=== PATIENT | female | born 1950 | race Hispanic/Latino ===

== ENCOUNTER 2017-08-17 04:35 | Emergency (ER) | payer OTHER ==
[2017-08-17 04:51] LABS: BASOPHILS % (AUTO) 0.8 % (0.0-5.0); EOSINOPHILS % (AUTO) 3.6 % (0.0-8.0); HEMATOCRIT 40.3 % (36-48); LYMPHOCYTES % (AUTO) 20.3 % (21.0-51.0); MEAN CORPUSCULAR HEMOGLOBIN 30.4 pg (27.0-33.0); MEAN CORPUSCULAR HGB CONC 34.4 g/dL (32.0-36.0); MEAN CORPUSCULAR VOLUME 88.4 fL (79-99); MONOCYTES % (AUTO) 7.6 % (3.0-13.0); NEUTROPHILS % (AUTO) 67.7 % (40.0-77.0); PLATELET COUNT (AUTO) 223 K/uL (130-400); RED BLOOD CELL COUNT(AUTO) 4.56 MIL/uL (4.00-5.50); RED CELL DISTRIBUTION WIDTH 14.6 % (11.0-15.5)
[2017-08-17] MEDS ORDERED: ASPIRIN 325 MG TABLET ONE (04:52)
[2017-08-17 05:02] LABS: CARBON DIOXIDE 28 mmol/L (21-32); CHLORIDE 100 mmol/L (101-111); CREATININE 0.9 mg/dL (0.5-1.5); GLOMERULAR FILTR. RATE CALC 66 mL/min (>60); GLUCOSE,RANDOM 122 mg/dL (70-105); POTASSIUM 3.7 mmol/L (3.5-5.1); SODIUM SERUM 135 mmol/L (136-145); UREA NITROGEN, BLOOD 10 mg/dL (7-18)
[2017-08-17 05:03] LABS: INR 1.1 (0.85-1.15); PARTIAL THROMBOPLASTIN TIME 29.4 SEC (26.3-35.5); PROTHROMBIN TIME 11.5 SEC (9.6-11.6)
[2017-08-17 05:16] LABS: ALANINE AMINOTRANSFERASE 35 U/L (12-78); ALBUMIN 3.2 g/dL (3.5-5.0); ASPARTATE AMINOTRANSFERASE 27 U/L (10-37); BILIRUBIN,TOTAL 0.6 mg/dL (0.2-1.0); CREATINE KINASE MB < 0.5 ng/mL (0.5-3.6); CREATINE KINASE, TOTAL 69 U/L (21-232); MYOGLOBIN 50 ng/mL (10-92); TOTAL PROTEIN, SERUM 7.3 g/dL (6.0-8.3)
[2017-08-17] MEDS ORDERED: IPRATROPIUM/ALBUTEROL SULFATE 3 ML SOLUTION IH ONE (05:23)
== END 2017-08-17 08:24 | disposition home or self-care (01) ==
LOC: EDH 04:35
DX: J20.9 Acute bronchitis, unspecified (principal); I10 Essential (primary) hypertension; E11.9 Type 2 diabetes mellitus without complications; E78.5 Hyperlipidemia, unspecified; Z79.899 Other long term (current) drug therapy; Z90.49 Acquired absence of other specified parts of digestive tract
CPT/HCPCS: 36415; 71045; 80053; 82550; 82553; 83874; 84484; 85025; 85610; 85730; 87804; 93005; 94640; 94761

== ENCOUNTER 2017-09-21 15:03 | Emergency (ER) | payer OTHER ==
[2017-09-21] MEDS ORDERED: CIPROFLOXACIN HCL 0.2%/HYDROCORT 1% 10 ML OTIC SUSP ONE (15:36)
[2017-09-21] MEDS ORDERED: KETOROLAC TROMETHAMINE 30MG/ML ONE (15:48)
== END 2017-09-21 15:54 | disposition home or self-care (01) ==
LOC: EDH 15:03
DX: H60.91 Unspecified otitis externa, right ear (principal); E11.9 Type 2 diabetes mellitus without complications; I10 Essential (primary) hypertension; E78.5 Hyperlipidemia, unspecified; Z90.49 Acquired absence of other specified parts of digestive tract; Z98.890 Other specified postprocedural states
CPT/HCPCS: 96372; 99283; J1885

== ENCOUNTER 2017-12-21 20:03 | Emergency (ER) | payer OTHER ==
[2017-12-21 20:32] LABS: BASOPHILS % (AUTO) 0.7 % (0.0-5.0); EOSINOPHILS % (AUTO) 2.9 % (0.0-8.0); HEMATOCRIT 39.7 % (36-48); LYMPHOCYTES % (AUTO) 27.3 % (21.0-51.0); MEAN CORPUSCULAR HEMOGLOBIN 30.5 pg (27.0-33.0); MEAN CORPUSCULAR HGB CONC 34.7 g/dL (32.0-36.0); MEAN CORPUSCULAR VOLUME 87.8 fL (79-99); MONOCYTES % (AUTO) 6.5 % (3.0-13.0); NEUTROPHILS % (AUTO) 62.6 % (40.0-77.0); NUCLEATED RED BLOOD CELLS 0.1 % (0.0-0.19); PLATELET COUNT (AUTO) 283 K/uL (130-400); RED BLOOD CELL COUNT(AUTO) 4.52 MIL/uL (4.00-5.50); RED CELL DISTRIBUTION WIDTH 14.5 % (11.0-15.5); WHITE BLOOD COUNT (AUTO) 15.1 K/uL (4.8-10.8)
[2017-12-21 21:04] LABS: B-TYPE NATRIURETIC PEPTIDE 55 pg/mL (0-100)
[2017-12-21 21:37] LABS: POTASSIUM 3.1 mmol/L (3.5-5.1)
[2017-12-21 21:52] LABS: ALBUMIN 3.4 g/dL (3.5-5.0); BILIRUBIN,TOTAL 0.2 mg/dL (0.2-1.0); CREATINE KINASE MB 0.8 ng/mL (0.5-3.6); TOTAL PROTEIN, SERUM 7.7 g/dL (6.0-8.3)
[2017-12-21] MEDS ORDERED: KETOROLAC TROMETHAMINE 15MG/ML ONE (22:01)
[2017-12-21 23:07] LABS: APPEARANCE,URINE Clear (CLEAR); BILIRUBIN,URINE Negative (NEGATIVE); COLOR,URINE Yellow (YELLOW); GLUCOSE, URINE (UA) Negative (NEGATIVE); KETONES,URINE Negative (NEGATIVE); LEUKOCYTE ESTERASE ,URINE Moderate (NEGATIVE); NITRATE,URINE Negative (NEGATIVE); OCCULT BLOOD,URINE Negative (NEGATIVE); PH,URINE 6.5 (5.0-8.0); PROTEIN,URINE Negative (NEGATIVE); UROBILINOGEN,URINE 0.2 mg/dL (0.2-1.0)
[2017-12-21 23:15] LABS: BACTERIA,URINE Few /HPF (None Seen); MUCUS,URINE Many LPF (None Seen); RBC,URINE 0-1 /HPF (0-1); SQUAMOUS EPITHELIAL CELL,UR Moderate /HPF (0-2)
== END 2017-12-22 02:59 | disposition short-term general hospital (02) ==
LOC: EDH 20:03
DX: M25.511 Pain in right shoulder (principal); R53.1 Weakness; R20.2 Paresthesia of skin; R20.0 Anesthesia of skin; M54.2 Cervicalgia; E11.9 Type 2 diabetes mellitus without complications; E78.5 Hyperlipidemia, unspecified; I10 Essential (primary) hypertension
CPT/HCPCS: 36415; 70450; 71046; 72125; 73030; 73110; 80053; 81001; 82550; 82553; 83880; 84484; 85025; 93005; 96374; 99285; J1885

== ENCOUNTER 2018-01-06 14:58 | Emergency (ER) | payer OTHER | END 2018-01-06 15:34 | disposition home or self-care (01) | LOC: EDH 14:58 | DX: H61.21 Impacted cerumen, right ear (principal); E11.9 Type 2 diabetes mellitus without complications; E78.5 Hyperlipidemia, unspecified; I10 Essential (primary) hypertension | CPT/HCPCS: 99281 ==

== ENCOUNTER → 2018-04-19 | Outpatient (CLI) | payer OTHER ==
[~2018-04-19] VITALS: Ht 152.4 cm; Wt 99.8 kg
[~2018-04-19] MED LIST: REGADENOSON 0.4 MG/5 ML PF SYG IVP SCH
== END | disposition home or self-care (01) ==
LOC: SHCH 09:04
PROVIDERS: ATTEND Internal Medicine Cardiovascular Disease
DX: I10 Essential (primary) hypertension (principal); E11.9 Type 2 diabetes mellitus without complications; E78.5 Hyperlipidemia, unspecified; Z90.49 Acquired absence of other specified parts of digestive tract
CPT/HCPCS: 78452; 93017; 96374; A9500 ×2; J2785

== ENCOUNTER → 2018-04-26 | Outpatient (CLI) | payer OTHER ==
[~2018-04-26] MED LIST changes: +ASPI-555 PO; +CARV6.25 PO; +FENO54TA6 PO; +LOSA1TAB54 PO; +METF-444 PO; +PRAV40TA3 PO; -REGADENOSON 0.4 MG/5 ML PF SYG IVP SCH
== END | disposition home or self-care (01) ==
LOC: SHCH 14:57
PROVIDERS: ATTEND Internal Medicine Cardiovascular Disease
DX: I10 Essential (primary) hypertension (principal); E11.9 Type 2 diabetes mellitus without complications; E78.5 Hyperlipidemia, unspecified; Z79.899 Other long term (current) drug therapy
CPT/HCPCS: 93306

== ENCOUNTER 2018-05-16 05:36 | Day surgery (SDC) | payer OTHER ==
[2018-05-14 12:50] VITALS: BP 123/50
[2018-05-14 12:59] LABS: EOSINOPHILS % (AUTO) 2.9 % (0.0-8.0); LYMPHOCYTES % (AUTO) 30.8 % (21.0-51.0); MEAN CORPUSCULAR VOLUME 90.8 fL (79-99); MONOCYTES % (AUTO) 5.6 % (3.0-13.0); NEUTROPHILS % (AUTO) 59.7 % (40.0-77.0); PLATELET COUNT (AUTO) 226 K/uL (130-400); RED BLOOD CELL COUNT(AUTO) 4.74 MIL/uL (4.00-5.50); RED CELL DISTRIBUTION WIDTH 14.8 % (11.0-15.5); WHITE BLOOD COUNT (AUTO) 10.7 K/uL (4.8-10.8)
[2018-05-14 13:00] LABS: APPEARANCE,URINE Cloudy (CLEAR); BILIRUBIN,URINE Negative (NEGATIVE); COLOR,URINE Yellow (YELLOW); GLUCOSE, URINE (UA) Negative (NEGATIVE); KETONES,URINE Negative (NEGATIVE); LEUKOCYTE ESTERASE ,URINE Small (NEGATIVE); NITRATE,URINE Negative (NEGATIVE); OCCULT BLOOD,URINE Negative (NEGATIVE); PROTEIN,URINE Trace (NEGATIVE)
[2018-05-14 13:11] LABS: INR 1.09 (0.85-1.15); PARTIAL THROMBOPLASTIN TIME 33.5 SEC (26.3-35.5); PROTHROMBIN TIME 11.4 SEC (9.6-11.6)
[2018-05-14 13:13] LABS: CREATININE 1.2 mg/dL (0.5-1.5); POTASSIUM 3.8 mmol/L (3.5-5.1)
[2018-05-14 13:19] LABS: RBC,URINE 0-1 /HPF (0-1)
[2018-05-14 13:20] LABS: BACTERIA,URINE Rare /HPF (None Seen)
[2018-05-14 13:22] LABS: TRANSITIONAL EPI CELLS,URINE Rare /HPF (None Seen)
[2018-05-14 13:23] LABS: SQUAMOUS EPITHELIAL CELL,UR Few /HPF (0-2)
[~2018-05-16] VITALS: Ht 154.9 cm; Wt 100.4 kg
[2018-05-16] VITALS (14 sets, daily range): BP systolic 111–143; BP diastolic 48–66
[~2018-05-16 05:36] MED LIST changes: +SODIUM CHLORIDE 0.9% 500ML 500 ML IV SCH
[2018-05-16] MEDS ORDERED: SODIUM CHLORIDE 0.9% 1000ML 1,000 ML IV ONE (07:32)
[2018-05-16] MEDS ORDERED: LIDOCAINE HCL-MPF 2% 5ML VIAL ONE ×2 (08:19→09:13)
[2018-05-16] MEDS ORDERED: IOHEXOL 350 MG/ML 100ML INFUS..BTL IV ONE (08:20)
[2018-05-16] MEDS ORDERED: IOHEXOL-350 50ML VIAL IV ONE (08:20)
[2018-05-16] MEDS ORDERED: HEPARIN SODIUM 1000UNIT/ML 10ML VIAL ONE (08:20)
[2018-05-16] MEDS ORDERED: GLUCAGON 1MG KIT 1 MG ML IM PRN (10:00)
[2018-05-16] MEDS ORDERED: DEXTROSE 50%-WATER 50 ML DISP.SYRIN IV PRN (10:00)
[2018-05-16] MEDS ORDERED: SODIUM CHLORIDE 0.9% 10 ML VIAL IVP SCH (10:00)
[2018-05-16] MEDS ORDERED: INSULIN HUMULIN R 100 UNIT/ML 3ML SQ SCH (11:30)
== END 2018-05-16 18:10 | disposition home or self-care (01) ==
LOC: DAH 05:36
PROVIDERS: ATTEND Internal Medicine Cardiovascular Disease
DX: I34.0 Nonrheumatic mitral (valve) insufficiency (principal); I11.9 Hypertensive heart disease without heart failure; E78.5 Hyperlipidemia, unspecified; F32.9 Major depressive disorder, single episode, unspecified; E66.09 Other obesity due to excess calories; Z68.41 Body mass index [BMI] 40.0-44.9, adult; Z79.82 Long term (current) use of aspirin; Z79.899 Other long term (current) drug therapy; Z90.49 Acquired absence of other specified parts of digestive tract; Z82.49 Family history of ischemic heart disease and other diseases of the circulatory system; Z83.3 Family history of diabetes mellitus
CPT/HCPCS: 36415; 71045; 80048; 81001; 82948 ×2; 85025; 85610; 85730; 93005; 93460; A4606; C1894 ×3; J1644 ×2; J3490 ×2; J7030; Q9965; Q9967 ×2

== ENCOUNTER 2019-10-26 16:03 | Emergency (ER) | payer OTHER ==
[~2019-10-26 16:03] MED LIST changes: -SODIUM CHLORIDE 0.9% 500ML 500 ML IV SCH
[2019-10-26] MEDS ORDERED: TETRACAINE HCL 0.5% 4 ML OPHTH SOLN ONE (17:17)
[2019-10-26] MEDS ORDERED: FLUORESCEIN SODIUM 1 STRIP STRIP ONE (17:17)
[2019-10-26] MEDS ORDERED: DIPHENHYDRAMINE HCL 25 MG CAPSULE ONE (17:43)
== END 2019-10-26 17:59 | disposition home or self-care (01) ==
LOC: EDH 16:03
DX: B02.9 Zoster without complications (principal); E11.9 Type 2 diabetes mellitus without complications; I10 Essential (primary) hypertension; E78.5 Hyperlipidemia, unspecified; Z90.49 Acquired absence of other specified parts of digestive tract; Z98.890 Other specified postprocedural states
CPT/HCPCS: 99283; Q0163

== ENCOUNTER 2021-07-05 06:34 | Observation (INO) | payer OTHER ==
[~2021-07-05] VITALS: Ht 157.5 cm; Wt 100.4 kg
[~2021-07-05 06:34] MED LIST changes: -ASPI-555 PO; +ASPI-556 PO
[2021-07-05 06:54] LABS: EOSINOPHILS % (AUTO) 2.5 % (0.0-8.0); HEMATOCRIT 43.3 % (36-48); LYMPHOCYTES % (AUTO) 26.6 % (21.0-51.0); MEAN CORPUSCULAR HEMOGLOBIN 29.7 pg (27.0-33.0); MONOCYTES % (AUTO) 6.1 % (3.0-13.0); NEUTROPHILS % (AUTO) 62.8 % (40.0-77.0); PLATELET COUNT (AUTO) 221 K/uL (130-400); RED BLOOD CELL COUNT(AUTO) 4.81 MIL/uL (4.00-5.50); RED CELL DISTRIBUTION WIDTH 15.1 % (11.0-15.5); WHITE BLOOD COUNT (AUTO) 14.5 K/uL (4.8-10.8)
[2021-07-05 07:13] LABS: ALBUMIN 3.4 g/dL (3.5-5.0); BILIRUBIN,TOTAL 0.6 mg/dL (0.2-1.0); TOTAL PROTEIN, SERUM 7.6 g/dL (6.0-8.3)
[2021-07-05] MEDS ORDERED: NITROGLYCERIN 1GM OINT 1 INCH/1GM TD SCH (07:30)
[2021-07-05] MEDS ORDERED: MORPHINE 4 MG SYG IVP SCH (07:30)
[2021-07-05] MEDS ORDERED: ONDANSETRON 4MG INJ IVP SCH (07:30)
[2021-07-05] MEDS ORDERED: ASPIRIN 325MG TAB PO SCH (07:30)
[2021-07-05 09:20] LABS: APPEARANCE,URINE Clear (CLEAR); BILIRUBIN,URINE Negative (NEGATIVE); COLOR,URINE Yellow (YELLOW); GLUCOSE, URINE (UA) Negative (NEGATIVE); KETONES,URINE Negative (NEGATIVE); LEUKOCYTE ESTERASE ,URINE Negative (NEGATIVE); NITRATE,URINE Negative (NEGATIVE); OCCULT BLOOD,URINE Negative (NEGATIVE); PH,URINE 6.5 (5.0-8.0); PROTEIN,URINE Negative (NEGATIVE)
[2021-07-05] MEDS ORDERED: HYDRALAZINE 20MG/ML VIAL IV PRN (10:30)
[2021-07-05] MEDS ORDERED: ACETAMINOPHEN 325 MG TAB PO PRN (10:30)
[2021-07-05] MEDS ORDERED: LABETALOL 20MG SYG IV PRN (10:30)
[2021-07-05] MEDS ORDERED: IPRATROPIUM/ALBUTEROL SULFATE 3 ML SOLUTION IH PRN (10:30)
[2021-07-05] MEDS ORDERED: DOCUSATE SODIUM 100 MG CAP PO PRN (10:30)
[2021-07-05] MEDS: INSULIN HUMULIN R 100 UNIT/ML 3ML SQ SCH ×3 (11:11→19:56)
[2021-07-05 15:35] VITALS: BP 126/42
[2021-07-05] MEDS ORDERED: ROSU10TA28 PO (16:40)
[2021-07-05] MEDS ORDERED: DULO20CA18 PO (16:40)
[2021-07-05] MEDS ORDERED: TRAM50TA4 PO (16:40)
[2021-07-05] MEDS ORDERED: ALPR0.255 PO (16:40)
[2021-07-05] MEDS ORDERED: CARV6.25 PO (16:45)
[2021-07-05] MEDS ORDERED: ONDANSETRON 4MG INJ IVP PRN (19:30)
[2021-07-05 19:51] VITALS: BP 120/50
[2021-07-05] MEDS: TRAMADOL HCL 50 MG TABLET PO SCH (19:56)
[2021-07-05] MEDS: ALPRAZOLAM 0.25 MG TABLET PO SCH (19:56)
[2021-07-05] MEDS: CARVEDILOL 6.25 MG TABLET PO SCH (19:56)
[2021-07-05] MEDS ORDERED: SIMVASTATIN 20 MG TABLET PO SCH (21:00)
[2021-07-05 23:06] VITALS: BP 101/54
[2021-07-06 03:42] VITALS: BP 113/56
[2021-07-06 05:26] LABS: CREATININE 0.9 mg/dL (0.5-1.5); MAGNESIUM 1.8 mg/dL (1.80-2.40); PHOSPHORUS 3.9 mg/dL (2.5-4.9)
[2021-07-06] MEDS: INSULIN HUMULIN R 100 UNIT/ML 3ML SQ SCH ×4 (05:56→21:00)
[2021-07-06 08:00] VITALS: BP 111/40
[2021-07-06] MEDS: REGADENOSON 0.4 MG/5 ML PF SYG IVP SCH ×2 (08:00→12:12)
[2021-07-06] MEDS: ENOXAPARIN SODIUM 40 MG/0.4 ML SYRINGE SQ SCH ×2 (09:00→09:41)
[2021-07-06] MEDS: TRAMADOL HCL 50 MG TABLET PO SCH ×3 (09:00→20:50)
[2021-07-06] MEDS: **HM**(Duloxetine HCl 20 MG PO SCH (09:00)
[2021-07-06] MEDS: LOSARTAN/HYDROCHLOROTHIAZIDE 50-12.5MG TABLET PO SCH ×2 (09:00→09:21)
[2021-07-06] MEDS: ATORVASTATIN 20 MG TABLET PO SCH (09:21)
[2021-07-06] MEDS: PANTOPRAZOLE 40 MG TAB DR PO SCH (09:22)
[2021-07-06] MEDS: CARVEDILOL 6.25 MG TABLET PO SCH ×2 (09:24→20:47)
[2021-07-06 12:00] VITALS: BP 127/46
[2021-07-06 17:38] VITALS: BP 136/38
[2021-07-06 20:00] VITALS: BP 146/64
[2021-07-06] MEDS: ALPRAZOLAM 0.25 MG TABLET PO SCH (20:47)
[2021-07-07] VITALS: BP 108/42
[2021-07-07 04:00] VITALS: BP 101/48
[2021-07-07 05:14] LABS: BASOPHILS % (AUTO) 1.1 % (0.0-5.0); EOSINOPHILS % (AUTO) 3.3 % (0.0-8.0); LYMPHOCYTES % (AUTO) 29.3 % (21.0-51.0); MEAN CORPUSCULAR HEMOGLOBIN 29.4 pg (27.0-33.0); MEAN CORPUSCULAR HGB CONC 32.4 g/dL (32.0-36.0); MEAN CORPUSCULAR VOLUME 90.5 fL (79-99); MONOCYTES % (AUTO) 7.7 % (3.0-13.0); NEUTROPHILS % (AUTO) 57.9 % (40.0-77.0); PLATELET COUNT (AUTO) 209 K/uL (130-400); RED BLOOD CELL COUNT(AUTO) 4.53 MIL/uL (4.00-5.50)
[2021-07-07 05:39] LABS: ALBUMIN 2.9 g/dL (3.5-5.0); BILIRUBIN,TOTAL 0.4 mg/dL (0.2-1.0); CREATININE 0.9 mg/dL (0.5-1.5); POTASSIUM 3.9 mmol/L (3.5-5.1); TOTAL PROTEIN, SERUM 6.9 g/dL (6.0-8.3)
[2021-07-07] MEDS: INSULIN HUMULIN R 100 UNIT/ML 3ML SQ SCH ×2 (06:33→11:19)
[2021-07-07 08:49] VITALS: BP 118/52
[2021-07-07] MEDS: PANTOPRAZOLE 40 MG TAB DR PO SCH (09:00)
[2021-07-07] MEDS: ATORVASTATIN 20 MG TABLET PO SCH (09:00)
[2021-07-07] MEDS: LOSARTAN/HYDROCHLOROTHIAZIDE 50-12.5MG TABLET PO SCH (09:00)
[2021-07-07] MEDS: ENOXAPARIN SODIUM 40 MG/0.4 ML SYRINGE SQ SCH (09:00)
[2021-07-07] MEDS: TRAMADOL HCL 50 MG TABLET PO SCH (09:00)
[2021-07-07] MEDS: **HM**(Duloxetine HCl 20 MG PO SCH (09:00)
[2021-07-07] MEDS: CARVEDILOL 6.25 MG TABLET PO SCH (09:16)
[2021-07-07 13:35] VITALS: BP 130/60
== END 2021-07-07 15:50 | disposition still patient (30) ==
LOC: EDH 06:34 → INTOOBSV 10:05 → EDHIP 10:05 → 3AH 15:42
PROVIDERS: ADMIT Internal Medicine Pulmonary Disease; ATTEND Internal Medicine Pulmonary Disease
DX: R07.89 Other chest pain (principal); I10 Essential (primary) hypertension; E11.9 Type 2 diabetes mellitus without complications; G47.33 Obstructive sleep apnea (adult) (pediatric); D72.829 Elevated white blood cell count, unspecified; E66.01 Morbid (severe) obesity due to excess calories; E78.5 Hyperlipidemia, unspecified; F32.A Depression, unspecified; Z86.73 Personal history of transient ischemic attack (TIA), and cerebral infarction without residual deficits; Z77.22 Contact with and (suspected) exposure to environmental tobacco smoke (acute) (chronic); Z91.19 Patient's noncompliance with other medical treatment and regimen; Z98.61 Coronary angioplasty status; Z90.49 Acquired absence of other specified parts of digestive tract; Z98.891 History of uterine scar from previous surgery; Z79.82 Long term (current) use of aspirin; Z79.84 Long term (current) use of oral hypoglycemic drugs; Z68.41 Body mass index [BMI] 40.0-44.9, adult
CPT/HCPCS: 36415 ×3; 71045; 78452; 80048; 80053 ×2; 81003; 82550 ×3; 82948 ×10; 83735; 83874 ×3; 83880; 84100; 84484 ×4; 85025 ×2; 93005; 93017; 93306; 93356; 96372; 96374; 96375; 96376; 99285; A9500 ×2; G0378 ×50; J1650; J2270; J2405 ×2; J2785

== ENCOUNTER 2022-10-20 03:42 | Emergency (ER) | payer OTHER ==
[~2022-10-20] VITALS: Ht 154.9 cm; Wt 106.6 kg
[~2022-10-20 03:42] MED LIST changes: +ALPR0.255 PO; -ASPI-556 PO; -CARV6.25 PO; +DULO20CA18 PO; -FENO54TA6 PO; -PRAV40TA3 PO; +ROSU10TA28 PO; +TRAM50TA4 PO
[2022-10-20] MEDS ORDERED: LIDOCAINE HCL 2% VISCOUS 15 ML UDCUP ONE (03:59)
[2022-10-20] MEDS ORDERED: MAG/ALUM/SIMETH 30 ML UDCUP ONE (03:59)
[2022-10-20] MEDS ORDERED: DICYCLOMINE HCL 10 MG/5 ML ML PO ONE (03:59)
[2022-10-20 04:00] LABS: APPEARANCE,URINE CLEAR (CLEAR); BILIRUBIN,URINE NEGATIVE (NEGATIVE); GLUCOSE, URINE (UA) NEGATIVE (NEGATIVE); KETONES,URINE NEGATIVE (NEGATIVE); LEUKOCYTE ESTERASE ,URINE NEGATIVE Leu/uL (NEGATIVE); NITRATE,URINE NEGATIVE (NEGATIVE); OCCULT BLOOD,URINE NEGATIVE (NEGATIVE); PH,URINE 6.5 (5.0-8.0); PROTEIN,URINE NEGATIVE (NEGATIVE); UROBILINOGEN,URINE 0.2 mg/dL (0.2-1.0)
[2022-10-20] MEDS ORDERED: DICYCLOMINE HCL 10 MG/5 ML ML PO SCH (04:00)
[2022-10-20] MEDS ORDERED: 0.9% NACL 500ML IV.SOLN 500 ML IV ONE (04:00)
[2022-10-20] MEDS ORDERED: MAG/ALUM/SIMETH 30 ML UDCUP PO ONE (04:00)
[2022-10-20] MEDS ORDERED: LIDOCAINE HCL 2% VISCOUS 15 ML UDCUP PO ONE (04:00)
[2022-10-20 04:05] LABS: COLOR,URINE Light-Yellow (YELLOW)
[2022-10-20 04:19] LABS: BASOPHILS % (AUTO) 0.9 % (0.0-5.0); EOSINOPHILS % (AUTO) 3.2 % (0.0-8.0); LYMPHOCYTES % (AUTO) 27.6 % (21.0-51.0); MEAN CORPUSCULAR HGB CONC 32.6 g/dL (32.0-36.0); MONOCYTES % (AUTO) 8.3 % (3.0-13.0); NEUTROPHILS % (AUTO) 59.3 % (40.0-77.0); PLATELET COUNT (AUTO) 187 K/uL (130-400); RED BLOOD CELL COUNT(AUTO) 4.72 MIL/uL (4.00-5.50); RED CELL DISTRIBUTION WIDTH 14.4 % (11.0-15.5); WHITE BLOOD COUNT (AUTO) 12.7 K/uL (4.8-10.8)
[2022-10-20 04:27] LABS: CREATININE 0.8 mg/dL (0.5-1.5); POTASSIUM 4.1 mmol/L (3.5-5.1)
[2022-10-20 04:31] LABS: ALBUMIN 3.1 g/dL (3.5-5.0); TOTAL PROTEIN, SERUM 7.1 g/dL (6.0-8.3)
[2022-10-20 05:26] VITALS: BP 143/57
[2022-10-20] MEDS ORDERED: FAMO-136 PO (06:00)
[2022-10-20] MEDS ORDERED: HYDR30CR79 RC (06:07)
== END 2022-10-20 06:16 | disposition home or self-care (01) ==
LOC: EDH 03:42
DX: K64.4 Residual hemorrhoidal skin tags (principal); K21.00 Gastro-esophageal reflux disease with esophagitis, without bleeding; E11.9 Type 2 diabetes mellitus without complications; E66.09 Other obesity due to excess calories; E66.01 Morbid (severe) obesity due to excess calories; E78.00 Pure hypercholesterolemia, unspecified; I10 Essential (primary) hypertension; Z68.41 Body mass index [BMI] 40.0-44.9, adult; Z79.899 Other long term (current) drug therapy; Z98.890 Other specified postprocedural states; Z90.49 Acquired absence of other specified parts of digestive tract; Z86.73 Personal history of transient ischemic attack (TIA), and cerebral infarction without residual deficits
CPT/HCPCS: 99284; 96360; 71045; 84484; 80053; 83690; 85025; 81003; 36415; J7040

== ENCOUNTER 2023-05-30 15:20 | Emergency (ER) | payer OTHER ==
[~2023-05-30] VITALS: Ht 152.4 cm; Wt 108.9 kg
[~2023-05-30 15:20] MED LIST changes: +FAMO-136 PO; +HYDR30CR79 RC
[2023-05-30 15:23] VITALS: BP 150/82; PULSE 85; RESP 16
[2023-05-30] MEDS ORDERED: ACETAMINOPHEN 325 MG TAB PO ONE (16:30)
[2023-05-30 16:35] LABS: BASOPHILS # (AUTO) 0.12 K/uL (0.00-0.20); BASOPHILS % (AUTO) 0.7 % (0.0-5.0); EOSINOPHILS % (AUTO) 0.6 % (0.0-8.0); HEMATOCRIT 46.2 % (36-48); IMMATURE GRANULOCYTE ABSOLUTE 0.07 K/uL (0-1); LYMPHOCYTES # (AUTO) 4.1 K/uL (1.0-4.8); LYMPHOCYTES % (AUTO) 24.9 % (21.0-51.0); MEAN CORPUSCULAR HEMOGLOBIN 29.3 pg (27.0-33.0); MEAN CORPUSCULAR HGB CONC 32.9 g/dL (32.0-36.0); MONOCYTES # (AUTO) 1.4 K/uL (0.1-1.0); MONOCYTES % (AUTO) 8.4 % (3.0-13.0); NEUTROPHILS # (AUTO) 10.7 K/uL (1.8-7.7); PLATELET COUNT (AUTO) 209 K/uL (130-400); RED BLOOD CELL COUNT(AUTO) 5.19 MIL/uL (4.00-5.50); RED CELL DISTRIBUTION WIDTH 14.2 % (11.0-15.5); WHITE BLOOD COUNT (AUTO) 16.4 K/uL (4.8-10.8)
[2023-05-30 17:22] LABS: CREATININE 0.9 mg/dL (0.5-1.5)
[2023-05-30 17:22] LABS: SARS-CoV-2, RNA, NAAT NEGATIVE SARS CoV-2 (NEGATIVE)
[2023-05-30 17:28] LABS: INFLUENZA TYPE A Negative For Type A (NEGATIVE); INFLUENZA TYPE B Negative For Type B (NEGATIVE)
[2023-05-30] MEDS ORDERED: KETOROLAC 15MG/ML VIAL (15MG/ML) IV ONE (17:30)
[2023-05-30 17:44] LABS: APPEARANCE,URINE CLOUDY (CLEAR); BILIRUBIN,URINE NEGATIVE (NEGATIVE); COLOR,URINE YELLOW (YELLOW); GLUCOSE, URINE (UA) NEGATIVE (NEGATIVE); KETONES,URINE NEGATIVE (NEGATIVE); LEUKOCYTE ESTERASE ,URINE 250 Leu/uL (NEGATIVE); NITRATE,URINE NEGATIVE (NEGATIVE); OCCULT BLOOD,URINE NEGATIVE (NEGATIVE); PH,URINE 6.5 (5.0-8.0); PROTEIN,URINE 30 mg/dL (NEGATIVE); UROBILINOGEN,URINE 0.2 mg/dL (0.2-1.0)
[2023-05-30 17:49] LABS: ADD UA MICROSCOPIC YES
[2023-05-30 17:57] LABS: BACTERIA,URINE RARE /HPF (None Seen); MUCUS,URINE RARE LPF (None Seen); OTHER CASTS, URINE 1 /LPF (None Seen); SQUAMOUS EPITHELIAL CELL,UR MOD /HPF (0-2)
[2023-05-30] MEDS ORDERED: CYCLOBENZAPRINE HCL 10 MG TABLET PO ONE (18:00)
[2023-05-30] MEDS ORDERED: POTASSIUM BICARB/CIT AC 25 MEQ TABLET.EFF PO ONE (18:00)
[2023-05-30] MEDS ORDERED: CEFTRIAXONE 1G VIAL IVPB ONE (18:00)
[2023-05-30] MEDS ORDERED: IBUP-2070 PO (18:01)
[2023-05-30] MEDS ORDERED: CYCL5TAB PO (18:01)
[2023-05-30] MEDS ORDERED: NITR100C PO (18:01)
== END 2023-05-30 18:39 | disposition home or self-care (01) ==
LOC: EDH 15:20
DX: N39.0 Urinary tract infection, site not specified (principal); M54.2 Cervicalgia; E87.6 Hypokalemia; E78.00 Pure hypercholesterolemia, unspecified; I10 Essential (primary) hypertension; Z79.899 Other long term (current) drug therapy; Z86.73 Personal history of transient ischemic attack (TIA), and cerebral infarction without residual deficits; Z20.822 Contact with and (suspected) exposure to COVID-19
CPT/HCPCS: 99284; 96365; 87635; 96375; 84484; 80048; 85025; 87088; 87804 ×2; 83605; 81001; 36415; 93005; C9803; J0696; J1885

== ENCOUNTER 2023-06-27 04:04 | Emergency (ER) | payer OTHER ==
[~2023-06-27 04:04] MED LIST changes: +CYCL5TAB PO; +IBUP-2070 PO; +NITR100C PO
[2023-06-27] MEDS ORDERED: ONDANSETRON 4MG INJ IVP ONE (04:30)
[2023-06-27 04:59] LABS: BASOPHILS # (AUTO) 0.13 K/uL (0.00-0.20); BASOPHILS % (AUTO) 0.9 % (0.0-5.0); HEMATOCRIT 43.4 % (36-48); IMMATURE GRANULOCYTE ABSOLUTE 0.11 K/uL (0-1); LYMPHOCYTES # (AUTO) 4.2 K/uL (1.0-4.8); LYMPHOCYTES % (AUTO) 28.2 % (21.0-51.0); MEAN CORPUSCULAR HEMOGLOBIN 29.5 pg (27.0-33.0); MEAN CORPUSCULAR HGB CONC 33.2 g/dL (32.0-36.0); MEAN CORPUSCULAR VOLUME 88.9 fL (79-99); MONOCYTES % (AUTO) 6.6 % (3.0-13.0); NEUTROPHILS # (AUTO) 9.3 K/uL (1.8-7.7); NEUTROPHILS % (AUTO) 61.6 % (40.0-77.0); PLATELET COUNT (AUTO) 213 K/uL (130-400); RED BLOOD CELL COUNT(AUTO) 4.88 MIL/uL (4.00-5.50); RED CELL DISTRIBUTION WIDTH 14.4 % (11.0-15.5)
[2023-06-27 05:10] LABS: CREATININE 0.9 mg/dL (0.5-1.5); POTASSIUM 3.6 mmol/L (3.5-5.1)
[2023-06-27 05:14] LABS: BILIRUBIN,TOTAL 0.5 mg/dL (0.2-1.0); TOTAL PROTEIN, SERUM 7.5 g/dL (6.0-8.3)
[2023-06-27] MEDS ORDERED: LACTATED RINGERS 1000ML 1,000 ML IV ONE (05:30)
[2023-06-27] MEDS ORDERED: FAMOTIDINE 20MG VIAL IV ONE (05:30)
[2023-06-27 05:54] LABS: MAGNESIUM 1.7 mg/dL (1.80-2.40); THYROID STIMULATING HORMONE 2.48 uIU/mL (0.36-3.74)
[2023-06-27 06:23] LABS: APPEARANCE,URINE CLEAR (CLEAR); BILIRUBIN,URINE NEGATIVE (NEGATIVE); COLOR,URINE LIGHT-YELLOW (YELLOW); GLUCOSE, URINE (UA) NEGATIVE (NEGATIVE); KETONES,URINE NEGATIVE (NEGATIVE); LEUKOCYTE ESTERASE ,URINE NEGATIVE Leu/uL (NEGATIVE); NITRATE,URINE NEGATIVE (NEGATIVE); OCCULT BLOOD,URINE NEGATIVE (NEGATIVE); PROTEIN,URINE NEGATIVE (NEGATIVE); UROBILINOGEN,URINE 0.2 mg/dL (0.2-1.0)
[2023-06-27 06:24] LABS: ADD UA MICROSCOPIC NO
[2023-06-27 07:30] VITALS: BP 146/76; PULSE 70; RESP 17; O2SAT 96
[2023-06-27] MEDS ORDERED: LACT10SO9 PO (08:07)
== END 2023-06-27 08:16 | disposition home or self-care (01) ==
LOC: EDH 04:04
DX: K59.00 Constipation, unspecified (principal); R10.84 Generalized abdominal pain; E78.00 Pure hypercholesterolemia, unspecified; I10 Essential (primary) hypertension; Z79.899 Other long term (current) drug therapy; Z86.73 Personal history of transient ischemic attack (TIA), and cerebral infarction without residual deficits
CPT/HCPCS: 99285; 96374; 71045; 96361; 96375; 84443; 83735; 84484; 80053; 83690; 85025; 81003; 36415; 74018; 93005; J7120; J3490; J2405